=== PATIENT | male | born 1985 | race Two or more races ===

== ENCOUNTER → 2019-12-04 | Outpatient (CLI) | payer OTHER ==
--- NOTE | 2019-12-04 18:28 | REP ---
Clinical: Swelling. Technique: AP, lateral, bilateral oblique views of the left fourth digit. Findings: Moderate swelling surrounds the proximal interphalangeal joint. No subcutaneous emphysema or foreign body. No periosteal reaction. No obvious acute fracture or dislocation. Impression: Swelling. No acute fracture. Electronically Signed by Man Acevedo MD 12/04/2019 06:20 P
== END ==
LOC: M LRY 18:07
PROVIDERS: ATTEND Physician Assistant
DX: M25.442 Effusion, left hand (principal)

== ENCOUNTER → 2019-12-04 | Outpatient (REF) | payer OTHER ==
[2019-12-04 20:39] LABS: BASO # 0.1 10^3/uL (0.0-0.2); BASO % 1.6 % (0.0-1.0); EOS # 0.1 10^3/uL (0.0-0.5); HEMATOCRIT 46.4 % (42.0-52.0); HEMOGLOBIN 15.3 g/dl (13.5-17.5); LYMPH # 1.8 10^3/uL (1.5-5.0); LYMPH % 26.3 % (24.0-44.0); MEAN CORPUSCULAR HEMOGLOBIN 30.1 pg (27.0-33.0); MEAN CORPUSCULAR VOLUME 91.3 fl (80.0-96.0); MONO # 0.6 10^3/uL (0.0-0.8); MONO % 9.3 % (0.0-5.0); NEUTROPHILS # 4.2 10^3/uL (1.5-8.5); NEUTROPHILS % 61.5 % (36.0-66.0); PLATELET COUNT, AUTOMATED 304 10^3/uL (150-450); RED BLOOD COUNT 5.08 10^6/uL (4.30-6.10); WHITE BLOOD COUNT 6.9 10^3/uL (4.0-10.0)
[2019-12-04 20:40] LABS: ALBUMIN 3.9 GM/DL (3.2-5.2); ALT/SGPT 24 U/L (12-78); BILIRUBIN,TOTAL 0.3 MG/DL (0.2-1.0); BLOOD UREA NITROGEN 10 MG/DL (7-18); CALCIUM LEVEL 9.7 MG/DL (8.5-10.1); CARBON DIOXIDE LEVEL 32 MEQ/L (21-32); CHLORIDE LEVEL 103 MEQ/L (98-107); CREATININE FOR GFR 1.03 MG/DL (0.70-1.30); GLOMERULAR FILTRATION RATE > 60.0 (>60); GLUCOSE, FASTING 62 MG/DL (70-100); POTASSIUM SERUM 4.4 MEQ/L (3.5-5.1); RHEUMATOID FACTOR QUANT < 10.0 IU/ML (<15.0); SODIUM LEVEL 138 MEQ/L (136-145); TOTAL PROTEIN 8.5 GM/DL (6.4-8.2); URIC ACID 5.2 MG/DL (3.5-7.2)
[2019-12-07 00:06] LABS: ANTINUCLEAR ANTIBODIES DIRECT Negative (Negative); Lyme Disease IgG/IgM Antibodie <0.91 ISR (0.00-0.90); Lyme Disease IgM Ab Quantitati <0.80 index (0.00-0.79)
== END ==
LOC: M SFHCLERA 18:02
PROVIDERS: ATTEND Physician Assistant
DX: M25.442 Effusion, left hand (principal); M25.472 Effusion, left ankle
CPT/HCPCS: 73140; 80053; 84550; 85025; 86038; 86431; 86617; 96372; G0463; J2930

== ENCOUNTER 2020-09-25 14:51 | Emergency (ER) | payer OTHER ==
[~2020-09-25] VITALS: Ht 165.1 cm; Wt 83.0 kg
--- OUTSIDE RECORDS SUMMARY | 2020-09-25 14:57 | CCD ---
Author Author [facility] Organization [facility] Address Unknown Phone Unavailable Support Name Relationship Address Phone TERRANCE HAUSER Next Of Kin [id number] [place] [address] TERRANCE HAUSER ECON [id number] [place] [address] Unavailable Re-disclosure Warning The records that you are about to access may contain information from federally-assisted alcohol or drug abuse programs. If such information is present, then the following federally mandated warning applies: This information has been disclosed to you from records protected by federal confidentiality rules (42 CFR part 2). The federal rules prohibit you from making any further disclosure of this information unless further disclosure is expressly permitted by the written consent of the person to whom it pertains or as otherwise permitted by 42 CFR part 2. A general authorization for the release of medical or other information is NOT sufficient for this purpose. The Federal rules restrict any use of the information to criminally investigate or prosecute any alcohol or drug abuse patient.The records that you are about to access may contain highly sensitive health information, the redisclosure of which is protected by Article 27-F of the [facility] Public Health law. If you continue you may have access to information: Regarding HIV / AIDS; Provided by facilities licensed or operated by the [facility] Office of Mental Health; or Provided by the [facility] Office for People With Developmental Disabilities. If such information is present, then the following [facility] mandated warning applies: This information has been disclosed to you from confidential records which are protected by state law. State law prohibits you from making any further disclosure of this information without the specific written consent of the person to whom it pertains, or as otherwise permitted by law. Any unauthorized further disclosure in violation of state law may result in a fine or half-way sentence or both. A general authorization for the release of medical or other information is NOT sufficient authorization for further disc losure. Encounters Encounter Providers Location Date Indications Data Source(s ) [facility] [address] [place] [address] 12/04/2019 12:00:00 AM EDT eCW1 ([facility]) [facility] [address] [place] [address] 08/10/2019 12:00:00 AM EST eCW1 ([facility]) Medications Medication Brand Name Start Date Product Form Dose Route Admi nistrative Instructions Pharmacy Instructions Status Indications Reaction Description Data Source(s) Prednisone 20 MG Oral Tablet PredniSONE 20 MG PredniSONE 20 MG 12/04/2019 12:00:00 AM EDT active 2 tablet s eCW1 ([facility]) Diclofenac Sodium 75 MG Delayed Release Oral Tablet Diclofen ac Sodium 75 MG 08/10/2019 12:00:00 AM EST active 1 tablet with food or milk eCW1 ([facility]) Diclofenac Sodium 75 MG Delayed Release Oral Tablet Diclofen ac Sodium 75 MG 08/10/2019 12:00:00 AM EST suspended 1 tablet with food or milk eCW1 ([facility]) Insurance Providers Payer name Policy type / Coverage type Policy ID Covered green party ID Covered green party's relationship to brock Policy Brock Plan Information [facility] ACTIVE DUTY [id number] Surgeries/Procedures Procedure Description Date Indications Data Source(s) THER/PROPH/DIAG INJ, SC/IM 12/04/2019 12:00:00 AM EDT eCW1 ([facility]) Injection, methylprednisolone sodium succinate, up to 125 mg 12/04/2019 12:00:00 AM EDT eCW1 ([facility]) Results ID Date Data Source LYME DISEASE SCRN WITH CONFIRM 12/04/2019 12:00:00 AM EDT eC W1 ([facility]) Name Value Range Interpretation Code Description Data Jia rce(s) Supporting Document(s) <0.91 0.00-0.90 Lyme Disease IgG/IgM Anti dior eCW1 ([facility]) <0.80 0.00-0.79 Lyme Disease IgM Ab Quant itati eCW1 ([facility]) ID Date Data Source CORINNE 12/04/2019 12:00:00 AM EDT eCW1 ([facility]) Name Value Range Interpretation Code Description Data Jia rce(s) Supporting Document(s) Negative Negative ANTINUCLEAR ANTIBODIES DI RECT eCW1 ([facility]) Procedure Vital Signs ID Date Data Source UNK Name Value Range Interpretation Code Description Data Source(s) Diastolic blood pressure 87 mm[Hg] 87 mm[Hg] eCW1 ([facility]) Systolic blood pressure 142 mm[Hg] 142 mm[Hg] e CW1 ([facility]) Body temperature 98.3 [degF] 98.3 [degF] eCW1 ( [facility]) Respiratory rate 16 /min 16 /min eCW1 ([facility]) Heart rate 66 /min 66 /min eCW1 ([facility]) Body mass index (BMI) [Ratio] 31.78 kg/m2 31.78 kg/m2 eCW1 ([facility]) Body height 65 [in_us] 65 [in_us] eCW1 ([facility]) Body weight Measured 191 [lb_av] 191 [lb_av] eC W1 ([facility]) Diastolic blood pressure 74 mm[Hg] 74 mm[Hg] eCW1 ([facility]) Systolic blood pressure 122 mm[Hg] 122 mm[Hg] e CW1 ([facility]) Body temperature 98.2 [degF] 98.2 [degF] eCW1 ( [facility]) Respiratory rate 18 /min 18 /min eCW1 ([facility]) Heart rate 74 /min 74 /min eCW1 ([facility]) Body mass index (BMI) [Ratio] 31.61 kg/m2 31.61 kg/m2 W1 ([facility]) Body height 65 [in_us] 65 [in_us] eCW1 ([facility]) Body weight Measured 190 [lb_av] 190 [lb_av] eC W1 ([facility]) Patient Treatment Plan of Care Planned Activity Planned Date Details Description Data Source (s) Prednisone 20 MG Oral Tablet 12/04/2019 12:00:00 AM EDT eCW1 ([facility]) Diclofenac Sodium 75 MG Delayed Release Oral Tablet 08/10/20 12:00:00 AM EST eCW1 ([facility])
[2020-09-25] MEDS ORDERED: ALLO100T PO (15:27)
[2020-09-25] MEDS ORDERED: ATOR1TAB21 PO (15:27)
[2020-09-25] MEDS ORDERED: INDO50CA91 PO (15:27)
--- OUTSIDE RECORDS SUMMARY | 2020-09-25 16:59 | CCD ---
Author Author [facility] Organization [facility] Address Unknown Phone Unavailable Support Name Relationship Address Phone [facility] Next Of Kin [address] [place] [address] Unavailable ANALISAANANYA BRENNERA Next Of Kin [address] [place] [address] ANANYA HAUSERA ECON [address] [place] [address] Unavailable Re-disclosure Warning The records that you [...] is protected by Article 27-F of the [facility] Public Health law. If you continue you may have access to information: Regarding HIV / AIDS; Provided by facilities licensed or operated by the [facility] Office of Mental Health; or Provided by the [facility] Office for People With Developmental Disabilities. If such information is present, then the following [facility] mandated warning applies: This information [...] law may result in a fine or nursing home sentence or both. A general authorization for the release of medical or other information is NOT sufficient authorization for further disc losure. Encounters Encounter Providers Location Date Indications Data Source(s ) [address] [address] 12/04/2019 12:00:00 AM EDT eCW1 ([facility]) [facility] [address] [address] 08/10/2019 12:00:00 AM EST eCW1 ([facility]) Medications Medication Brand Name Start Date Product Form Dose Route Admi nistrative Instructions Pharmacy Instructions Status Indications Reaction Description Data Source(s) Prednisone 20 MG Oral Tablet PredniSONE 20 MG PredniSONE 20 MG 12/04/2019 12:00:00 AM EDT active 2 tablet s eCW1 ([facility]) Diclofenac Sodium 75 MG Delayed Release Oral Tablet Diclofen ac Sodium 75 MG 08/10/2019 12:00:00 AM EST active 1 tablet with food or milk eCW1 ([facility]) Diclofenac Sodium 75 MG Delayed Release Oral Tablet Diclofen ac Sodium 75 MG 08/10/2019 12:00:00 AM EST suspended 1 tablet with food or milk eCW1 ([facility]) Insurance Providers Payer name Policy type / Coverage type Policy ID Covered constitution party ID Covered constitution party's relationship to brock Policy Brock Plan Information [facility] ACTIVE DUTY [id number] Surgeries/Procedures Procedure Description Date Indications Data Source(s) THER/PROPH/DIAG INJ, SC/IM 12/04/2019 12:00:00 AM EDT eCW1 ([facility]) Injection, methylprednisolone sodium succinate, up to 125 mg 12/04/2019 12:00:00 AM EDT eCW1 ([facility]) Results ID Date Data Source LYME DISEASE SCRN WITH CONFIRM 12/04/2019 12:00:00 AM EDT eC W1 ([facility]) Name Value Range Interpretation Code Description Data Jia rce(s) Supporting Document(s) <0.91 0.00-0.90 Lyme Disease IgG/IgM Anti dior eCW1 ([facility]) <0.80 0.00-0.79 Lyme Disease IgM Ab Quant itati eCW1 ([facility]) ID Date Data Source CORINNE 12/04/2019 12:00:00 AM EDT eCW1 ([facility]) Name Value Range Interpretation Code Description Data Jia rce(s) Supporting Document(s) Negative Negative ANTINUCLEAR ANTIBODIES DI RECT eCW1 ([facility]) Procedure Vital Signs ID Date Data Source UNK Name Value Range Interpretation Code Description Data Source(s) Diastolic blood pressure 87 mm[Hg] 87 mm[Hg] eCW1 ([facility]) Systolic blood pressure 142 mm[Hg] 142 mm[Hg] e CW1 ([facility]) Body temperature 98.3 [degF] 98.3 [degF] eCW1 ( [facility]) Respiratory rate 16 /min 16 /min [facility] Heart rate 66 /min 66 /min eCW1 ([facility]) Body mass index (BMI) [Ratio] 31.78 kg/m2 31.78 kg/m2 W1 ([facility]) Body height 65 [in_us] 65 [in_us] eCW1 ([facility]) Body weight Measured 191 [lb_av] 191 [lb_av] eC W1 ([facility]) Diastolic blood pressure 74 mm[Hg] 74 mm[Hg] eCW1 ([facility]) Systolic blood pressure 122 mm[Hg] 122 mm[Hg] e CW1 ([facility]) Body temperature 98.2 [degF] 98.2 [degF] eCW1 ( [facility]) Respiratory rate 18 /min 18 /min [facility]CW[facility] Heart rate 74 /min 74 /min eCW1 ([facility]) Body mass index (BMI) [Ratio] 31.61 kg/m2 31.61 kg/m2 W1 ([facility]) Body height 65 [in_us] 65 [in_us] eCW1 ([facility]) Body weight Measured 190 [lb_av] 190 [lb_av] eC W1 ([facility]) Patient Treatment Plan of Care Planned Activity Planned Date Details Description Data Source (s) Prednisone 20 MG Oral Tablet 12/04/2019 12:00:00 AM EDT eCW1 ([facility]) Diclofenac Sodium 75 MG Delayed Release Oral Tablet 08/10/20 12:00:00 AM EST eCW1 ([facility])
[2020-09-25] MEDS ORDERED: NORCO, ANEXSIA 5/325MG TABLET (HYDROcodone/ACETAMINOPHEN) PO ONE (17:00)
[2020-09-25 17:19] LABS: BASO # 0.2 10^3/uL (0.0-0.2); BASO % 1.4 % (0.0-1.0); EOS # 0.1 10^3/uL (0.0-0.5); EOS % 0.4 % (0.0-3.0); HEMATOCRIT 46.6 % (42.0-52.0); HEMOGLOBIN 15.3 g/dl (13.5-17.5); LYMPH % 17.6 % (24.0-44.0); MEAN CORPUSCULAR HGB CONC 32.8 g/dl (32.0-36.5); MEAN CORPUSCULAR VOLUME 91.4 fl (80.0-96.0); MONO % 8.6 % (0.0-5.0); NEUTROPHILS % 71.6 % (36.0-66.0); PLATELET COUNT, AUTOMATED 305 10^3/uL (150-450); WHITE BLOOD COUNT 11.2 10^3/uL (4.0-10.0)
[2020-09-25 17:43] LABS: ERYTHROCYTE SEDIMENTATION RATE 12 mm/hr (0-15)
[2020-09-25 17:44] LABS: C REACTIVE PROTEIN QUANTITATIV 1.94 MG/DL (0.00-0.30)
[2020-09-25] MEDS ORDERED: predniSONE 20 MG TAB PO ONE (18:00)
[2020-09-25] MEDS ORDERED: HYDR-4571 PO (18:08)
[2020-09-25] MEDS ORDERED: PRED20TA PO (18:08)
[2020-09-25 18:49] VITALS: BP 141/82
== END 2020-09-25 18:52 | disposition home or self-care (01) ==
LOC: M ED 14:51
DX: M10.071 Idiopathic gout, right ankle and foot (principal)

== ENCOUNTER 2021-09-26 11:35 | Emergency (ER) | payer OTHER ==
[~2021-09-26] VITALS: Ht 167.6 cm; Wt 91.7 kg
[~2021-09-26 11:35] MED LIST: ALLO100T PO; ATOR1TAB21 PO; HYDR-4571 PO; INDO50CA91 PO; PRED20TA PO
[2021-09-26] MEDS ORDERED: COLCHICINE 0.6 MG TABLET PO ONE ×2 (12:15→15:50)
[2021-09-26 13:02] LABS: BASO # 0.1 10^3/uL (0.0-0.2); BASO % 1.1 % (0.0-1.0); EOS # 0.1 10^3/uL (0.0-0.5); EOS % 0.6 % (0.0-3.0); HEMATOCRIT 44.2 % (42.0-52.0); HEMOGLOBIN 14.6 g/dl (13.5-17.5); LYMPH # 2.6 10^3/uL (1.5-5.0); LYMPH % 20.9 % (24.0-44.0); MEAN CORPUSCULAR HEMOGLOBIN 29.8 pg (27.0-33.0); MEAN CORPUSCULAR VOLUME 90.2 fl (80.0-96.0); MONO # 1.1 10^3/uL (0.0-0.8); MONO % 8.6 % (2.0-8.0); NEUTROPHILS # 8.6 10^3/uL (1.5-8.5); NEUTROPHILS % 68.2 % (36.0-66.0); PLATELET COUNT, AUTOMATED 345 10^3/uL (150-450); WHITE BLOOD COUNT 12.6 10^3/uL (4.0-10.0)
[2021-09-26 13:40] LABS: BLOOD UREA NITROGEN 10 MG/DL (7-18); CALCIUM LEVEL 9.2 MG/DL (8.5-10.1); CARBON DIOXIDE LEVEL 31 MEQ/L (21-32); CHLORIDE LEVEL 103 MEQ/L (98-107); CREATININE FOR GFR 1.19 MG/DL (0.70-1.30); GLOMERULAR FILTRATION RATE > 60.0 (>60); GLUCOSE, FASTING 90 MG/DL (70-100); POTASSIUM SERUM 5.3 MEQ/L (3.5-5.1); SODIUM LEVEL 138 MEQ/L (136-145)
[2021-09-26 13:55] LABS: ERYTHROCYTE SEDIMENTATION RATE 33 mm/hr (0-15)
[2021-09-26] MEDS ORDERED: predniSONE 20 MG TAB PO ONE (14:35)
[2021-09-26] MEDS ORDERED: cefTRIAXone SOD 1 GM in D5W MINI-BAG PLUS 50 ML IV ONE (16:25)
[2021-09-26] MEDS ORDERED: CEPH500T PO (16:47)
[2021-09-26 17:51] VITALS: BP 127/73
[2021-09-29 16:08] LABS: Lyme Disease IgG/IgM Antibodie <0.91 ISR (0.00-0.90); Lyme Disease IgM Ab Quantitati <0.80 index (0.00-0.79)
== END 2021-09-26 17:52 | disposition home or self-care (01) ==
LOC: M ED 11:35
DX: M19.071 Primary osteoarthritis, right ankle and foot (principal); L03.115 Cellulitis of right lower limb; E87.5 Hyperkalemia; M10.9 Gout, unspecified
CPT/HCPCS: 29515; 36415; 73610; 80048; 84550; 85025; 85652; 86140; 86617; 93005; 96365; 99284; J0696; J7512

== ENCOUNTER → 2021-12-17 | Outpatient (REF) ==
[~2021-12-17] MED LIST changes: +CEPH500T PO
== END ==
LOC: M PLAIMG 11:02
PROVIDERS: ATTEND Internal Medicine
DX: M25.571 Pain in right ankle and joints of right foot (principal); M25.572 Pain in left ankle and joints of left foot